=== PATIENT | female | born 1990 | race African-American/Black ===

== ENCOUNTER 2018-01-18 11:53 | Emergency (ER) | payer BC ==
[2018-01-18] MEDS: HYDROCODONE/APAP (5/325) TAB PO (12:42)
== END 2018-01-18 13:16 | disposition home or self-care (01) ==
LOC: FTE 11:53
DX: S39.92XA Unspecified injury of lower back, initial encounter (principal); J45.909 Unspecified asthma, uncomplicated; W18.49XA Other slipping, tripping and stumbling without falling, initial encounter; Y92.9 Unspecified place or not applicable
CPT/HCPCS: 99283; Z7610